=== PATIENT | female | born 1950 | race Asian ===

== ENCOUNTER 2022-06-21 07:12 | Emergency (ER) | payer OTHER ==
[~2022-06-21] VITALS: Ht 152.4 cm; Wt 46.7 kg
[~2022-06-21 07:12] MED LIST: ASPI81EC98 PO; SIMV-30 PO
[2022-06-21 07:14] VITALS: BP 129/64
--- NOTE | 2022-06-21 07:15 | NUR ---
PT BIBA TO BED 04.
[2022-06-21] MEDS ORDERED: MECLIZINE 25 MG TAB PO ONE (07:20)
--- NOTE | 2022-06-21 07:29 | NUR ---
71/F BIBA FROM HOME C/O DIZZINESS ACCOMPANIED BY NAUSEA AND VOMITING ONSET 3 HRS AGO. DENIES LOC OR FALL. NO FACIAL DROOP OR SLURRED SPEECH NOTED. AAO4, AMBULATORY WITH ASSISTANCE, EQUAL CORN GRINDER STRENGTH TO B/L HANDS. VITALS STABLE, SPOUSE AT BEDSIDE, ON RESOURCING ADVISOR, IV ESTABLISHED BY [facility] [employer]OR NETWORK DEVELOPMENT ON L AC. EKG AT BEDSIDE. UNABLE TO PROVIDE URINE AT THIS TIME NKA PMH: HDL
--- NOTE | 2022-06-21 07:37 | NUR ---
PT WENT FOR CT
--- NOTE | 2022-06-21 08:39 | NUR ---
BLOOD AND URINE COLLECTED
[2022-06-21 08:40] LABS: APPEARANCE,URINE HAZY (CLEAR); BILIRUBIN,URINE NEGATIVE (NEGATIVE); BLOOD, URINE TRACE-I (NEGATIVE); COLOR,URINE YELLOW (YELLOW); LEUKOCYTE ESTERASE ,URINE NEGATIVE (NEGATIVE); NITRITE, URINE NEGATIVE (NEGATIVE); UGLUCOSE NEGATIVE (NEGATIVE)
[2022-06-21 08:55] LABS: RBC,URINE 0-5 /HPF (0-5)
[2022-06-21 08:56] LABS: WBC,URINE 0-5 /HPF (0-5)
[2022-06-21 09:07] LABS: BASOPHILS % (AUTO) 0.2 % (0.0-2.0); EOSINOPHILS % (AUTO) 0.3 % (0.0-4.0); HEMATOCRIT 37.1 % (36-48); HEMOGLOBIN 12.3 g/dL (12.0-16.0); LYMPHOCYTES # (AUTO) 0.8 K/uL (2.5-16.5); LYMPHOCYTES % (AUTO) 13.8 % (20.5-51.1); MEAN CORPUSCULAR HEMOGLOBIN 31 pg (27-31); MEAN CORPUSCULAR HGB CONC 33 g/dL (33-37); MEAN CORPUSCULAR VOLUME 92.3 fL (80-94); MONOCYTES # (AUTO) 0.2 K/uL (0.8-1.0); MONOCYTES % (AUTO) 3.9 % (1.7-9.3); NEUTROPHILS # (AUTO) 4.7 K/uL (1.8-7.7); NEUTROPHILS % (AUTO) 81.8 % (42.2-75.2); PLATELET COUNT (AUTO) 341 K/uL (140-450); RED BLOOD CELL COUNT(AUTO) 4.02 MIL/uL (4.20-5.40); RED CELL DISTRIBUTION WIDTH 13.2 % (11.6-13.7); WHITE BLOOD COUNT (AUTO) 5.8 K/uL (4.8-10.8)
--- NOTE | 2022-06-21 09:18 | NUR ---
PT STATES NO LONGER NAUSEOUS AND DECREASED DIZZINESS
[2022-06-21 09:26] LABS: ALBUMIN 3.5 g/dL (3.4-5.0); CARBON DIOXIDE 26.6 mmol/L (21-32); CHLORIDE 101 mmol/L (98-107); CREATININE 0.6 mg/dL (0.6-1.3); GLUCOSE 103 mg/dL (74-106); POTASSIUM 3.6 mmol/L (3.5-5.1); SODIUM SERUM 133 mmol/L (136-145); TOTAL BILIRUBIN 0.4 mg/dL (0.0-1.0); UREA NITROGEN, BLOOD 11 mg/dL (7-18)
--- NOTE | 2022-06-21 09:53 | NUR ---
WALKED WITHOUT COMPLICATION. DENIES DIZZINESS. ERMD AWARE
[2022-06-21 09:55] VITALS: BP 126/62
[2022-06-21] MEDS ORDERED: MECL-303 PO (09:57)
--- NOTE | 2022-06-21 10:00 | NUR ---
Patient discharged with v/s stable. Written and verbal after care instructions given and explained. Patient verbalized understanding. Ambulatory with steady gait. All questions addressed prior to discharge. Advised to follow up with PMD.
== END 2022-06-21 10:00 | disposition home or self-care (01) ==
LOC: MED 07:12
DX: R42 Dizziness and giddiness (principal); R11.10 Vomiting, unspecified; E78.5 Hyperlipidemia, unspecified; Z79.899 Other long term (current) drug therapy; Z79.82 Long term (current) use of aspirin
CPT/HCPCS: 36415; 70450; 80053; 81001; 84484; 85025; 93005; 99285; J8597